=== PATIENT | male | born 1955 | race Caucasian/White ===

== ENCOUNTER 2024-06-15 13:08 | Outpatient (CLI) | payer MEDICARE, SELFPAY ==
--- NOTE | ~2024-06-15 | XR_ITS ---
[id number] Ordering provider: Opal Avendano DO History: . M79.671 - Pain in right foot . Comparison: None. FINDINGS: BONES: No acute fracture or dislocation. Calcaneus spur. JOINT SPACES: Narrowing of the proximal and distal interphalangeal joints. No tarsal coalition. SOFT TISSUES: Vascular calcifications. IMPRESSION: No acute osseous abnormality of the right foot. Reviewed, dictated and finalized at location A. SITE COORDINATOR
== END 2024-06-15 13:09 | disposition home or self-care (01) ==
LOC: MICIMG 13:11
PROVIDERS: PCP Family Medicine; Visit Provider Family Medicine
DX: M79.671 Pain in right foot (principal)
CPT/HCPCS: 73630

== ENCOUNTER 2024-10-25 07:00 | Outpatient (NON) | payer MEDICARE, SELFPAY ==
--- OUTSIDE RECORDS SUMMARY | 2024-10-26 07:57 | XMS_ITS | Clinical Summary ---
Author Organization [facility] Address [address] [place] [address] Care Team Providers Care Tie In Machine Operator Name Role Phone Darrin Agudelo MD Primary Care Provider [phone] Allergies Active Allergy Reactions Criticality Noted Date [...] this topic Insurance [employer] Care Teams Tie In Machine Operator Relationship Specialty Start Date End Date Darrin Agudelo MD [address] [place] [id number] PCP - General INTERNAL MEDICINE 02/05/19
== END 2024-10-25 07:01 | disposition home or self-care (01) ==
LOC: ANHLAB 10-26 07:51
PROVIDERS: PCP Family Medicine; Visit Provider Internal Medicine Gastroenterology
DX: D12.3 Benign neoplasm of transverse colon (principal); Z12.11 Encounter for screening for malignant neoplasm of colon
CPT/HCPCS: 88305

== ENCOUNTER 2024-10-25 09:01 | Day surgery (SDC) | payer MEDICARE, SELFPAY ==
[2024-06-21 08:53] VITALS: BMI 32.9
[2024-10-04 10:36] VITALS: BMI 33.5
--- NOTE | 2024-10-05 06:55 | PC.NURSE ---
Chart reviewed per anesthesia. Pt OK for ASC per Dr. Jose.
--- NOTE | 2024-10-25 07:05 | WPDANESEPPF ---
Anes - Initial Pre Proc Eval Procedure: Operation Date: 10/25/24 11:00 Proposed Procedures p Screening Colonoscopy - Enrique Hernandez MD Date/Time: 10/25/24 07:05 Surgeon: Enrique Hernandez MD Pre Op Diagnosis: Neoplasm Screening Patient Data Age: 69 Gender: M Height: 1.73 m Weight: 100 kg Allergies Allergy/AdvReac Type Severity Reaction Status Date / Time Penicillins Allergy Mild childhood Verified 10/25/24 09:40 allergy aspirin AdvReac Mild History of Verified 10/25/24 09:40 gastric bypass Home Medications ?Medication ?Instructions ?Recorded ?Confirmed ?Type calcium carbonate (Calcium 500) 500 mg PO BID 06/14/24 10/25/24 History citalopram 10 mg tablet 10 mg PO DAILY 06/14/24 10/25/24 History cyanocobalamin (vitamin B-12) 500 mcg PO DAILY 06/14/24 10/25/24 History 1,000 mcg tablet losartan 100 mg tablet 100 mg PO DAILY 06/14/24 10/25/24 History montelukast 10 mg tablet 10 mg PO DAILY 06/14/24 10/25/24 History wmvipkpf-op-msmul 300 mcg-K 60 1 tablet PO DAILY 06/14/24 10/25/24 History mcg-lycop 600 mcg-lutein 300 mcg tablet (Centrum Silver Ultra Men's) pravastatin 20 mg tablet 20 mg PO DAILY 06/14/24 10/25/24 History trazodone 50 mg tablet 50 mg PO QHS PRN insomnia #90 tabs 06/14/24 10/25/24 Rx semaglutide 1 mg/dose (4 mg/3 mL) 1 mg (0.75 mL) subcut WEEKLY #3 mL 10/14/24 10/25/24 Rx subcutaneous pen injector (Ozempic) Patient hx anesthesia problems: none Family hx anesthesia problems: none Results Review: All pre-operative results and documents have been reviewed as part of the pre-operative evaluation. [facility] Past Medical History Medical History (Updated 10/25/24 @ 07:06 by David Jose DO) Hypertension Iron deficiency anemia Hyperlipidemia associated with type 2 diabetes mellitus Diabetes mellitus BMI 32.0-32.9,adult Arthritis Surgical History Surgical History (Updated 10/25/24 @ 07:06 by David Jose DO) H/O gastric bypass Family History Family History (Updated 10/14/24 @ 13:54 by BRENDEN Beltran) Mother Cancer of multiple primary sites Father Esophageal cancer Hypertension Diabetes mellitus Sibling Diabetes mellitus Hypertension Heart problem Social History Social History (Updated 10/14/24 @ 13:55 by BRENDEN Beltran) Smoking status: Never smoker Second hand tobacco smoke exposure: No Alcohol intake: current Drinks per week: 5 Substance use: never Substance use type: does not use Do You Feel Safe in your Home?: Yes Lack of Transportation: No Lack of Food: Never True Current Housing: I Have Housing Concerned About Future Housing: No Difficulty Paying Gas/Electric Bills: No Difficulty Paying for Meds: No Currently Unemployed: No Education: Associate Degree Difficulty w/ Childcare or Family Care: No Living arrangements: with family 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 Informed Consent: The patient's anesthetic plan and its attendant risks and benefits were discussed with the patient/family/POA. Questions were solicited and answers provided to the satisfaction of the patient/family/POA.
[2024-10-25 09:52] VITALS: BMI 31.6
[2024-10-25 09:53] VITALS: BP 133/82; PULSE 63; RESP 16; TEMP 36.4; O2SAT 98
[2024-10-25 10:07] LABS: Glucose Point of Care 94 mg/dl (65-105)
[2024-10-25] MEDS: LACTATED RINGERS 1,000 ML 150 ML IV CONT (10:08)
--- OUTSIDE RECORDS SUMMARY | 2024-10-25 10:29 | XMS_ITS | Clinical Summary ---
Author Organization [facility] Address [address] [place] [address] Care Team Providers Care Surgery Consultant Name Role Phone Darrin Agudelo MD Primary Care Provider [phone] Allergies Active Allergy Reactions Criticality Noted Date Comments Nsaids Other (see comment) 02/05/2019 GASTRIC BYPASS Penicillins Unknown 02/05/2019 Medications azelastine 0.1 % nasal spray 1 spray by Nasal route 2 (two) times daily. Use in each nostril as directed Active calcium carbonate-vitam in D 500-200 MG-UNIT Tab tablet Take 1 tablet by mouth daily. Active vitamin B-12 (CYANOCOBALAMIN ) 500 MCG tablet Take 500 mcg by mouth daily. Active finasteride 5 MG tablet Take 5 mg by mouth daily. Active fluticasone furoate 27.5 MCG/SPRAY Suspension 1 spray by Each Nostril route. Active metFORMIN 1000 MG tablet Take 1,000 mg by mouth 2 (two) times daily with meals. Active pravastatin 20 MG tablet Take 20 mg by mouth nightly at bedtime. Active tamsulosin 0.4 MG Cap Take 0.4 mg by mouth daily. Active traMADol 50 MG tablet Take 50 mg by mouth every 6 (six) hours as needed for Pain. Active multivitamin tablet Take by mouth daily. Active Social History Tobacco Use Types Packs/Day Years Used Date Smoking Tobacco: Never Smokeless Tobacco: Never Alcohol Use Standard Drinks/Week Comments No 0 (1 standard drink = 0.6 oz pur e alcohol) AUDIT-C Answer Date Recorded Frequency of Alcohol Consumption Never 02/05/2019 Average Number of Drinks Not on file 019 Frequency of Binge Drinking Not on file 08/2018 Sex and Gender Information Value Date Recorded Sex Assigned at Not on file Legal Sex Male 12:21 PM CDT Gender Identity Not on file Sexual Orientation Not on file Last Filed Vital Signs Vital Sign Reading Time Taken Comments Blood Pressure 138/88 02/05/2019 2:04 PM CDT Pulse 70 02/05/2019 2:04 PM CDT Temperature 37.1 C (98.7 F) 02/05/2019 2:04 PM CDT Respiratory Rate 18 02/05/2019 2:04 PM CDT Oxygen Saturation 98% 02/05/2019 2:04 PM CDT Inhaled Oxygen Concentration - - Weight 95.3 kg (210 lb) 02/05/2019 12:41 PM CDT Height 170.2 cm (5' 7 ) 02/05/2019 12:41 PM CDT Body Mass Index 32.89 02/05/2019 12:41 PM CDT Plan of Treatment Health Maintenance Due Date Last Done Comments Colorectal Cancer Screening Colonoscopy (10 Years) 1956 Hepatitis C 1974 DTaP, Tdap and Td Vaccines ( 1 - Tdap) 1975 Pneumococcal Vaccine: 50+ Ye ars (1 of 1 - PCV) 2006 Zoster Vaccines (1 of 2) 2006 COVID-19 Vaccine ( - 2023-2 5 season) 2024 RSV Immunization or 60+ Years (1 - 1-dose 75+ series) 2031 Meningococcal B Vaccine Aged Out No l onger eligible based on patient's age to complete this topic Meningococcal Vaccine Aged Out No mary hans eligible based on patient's age to complete this topic RSV Immunizations Under 20 Months Aged Out No longer eligible based on patient's age to complete this topic Insurance [employer] Care Teams Surgery Consultant Relationship Specialty Start Date End Date Darrin Agudelo MD [address] [place] [id number] PCP - General INTERNAL MEDICINE 02/05/19
--- NOTE | 2024-10-25 10:45 | PM.IMHP ---
H&P: HPI History of Present Illness Date/Time: 10/25/24 10:45 Chief Complaint: Screening colonoscopy Narrative: this patient has a history of bladder cancer, status post radical cystectomy with urostomy. His last screening colonoscopy was 20 years ago. He is referred for screening colonoscopy today. Review of Systems Review of Systems: All systems reviewed & are unremarkable except as noted in HPI and below PMFSH Past Medical History Medical History (Updated 10/25/24 @ 10:46 by Enrique Hernandez MD) Hypertension Iron deficiency anemia Hyperlipidemia associated with type 2 diabetes mellitus Diabetes mellitus BMI 32.0-32.9,adult Arthritis Surgical History Surgical History (Updated 10/25/24 @ 07:06 by David Jose DO) H/O gastric bypass Family History Family History (Updated 10/14/24 @ 13:54 by BRENDEN Beltran) Mother Cancer of multiple primary sites Father Esophageal cancer Hypertension Diabetes mellitus Sibling Diabetes mellitus Hypertension Heart problem Social History Social History (Updated 10/14/24 @ 13:55 by BRENDEN Beltran) Smoking status: Never smoker Second hand tobacco smoke exposure: No Alcohol intake: current Drinks per week: 5 Substance use: never Substance use type: does not use Do You Feel Safe in your Home?: Yes Lack of Transportation: No Lack of Food: Never True Current Housing: I Have Housing Concerned About Future Housing: No Difficulty Paying Gas/Electric Bills: No Difficulty Paying for Meds: No Currently Unemployed: No Education: Associate Degree Difficulty w/ Childcare or Family Care: No Living arrangements: with family 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 Gender identity (if verbalized by the patient): Male Spiritual care concerns: No Meds Home Medications and Allergies Home Medications ?Medication ?Instructions ?Recorded ?Confirmed ?Type calcium carbonate (Calcium 500) 500 mg PO BID 06/14/24 10/25/24 History citalopram 10 mg tablet 10 mg PO DAILY 06/14/24 10/25/24 History cyanocobalamin (vitamin B-12) 500 mcg PO DAILY 06/14/24 10/25/24 History 1,000 mcg tablet losartan 100 mg tablet 100 mg PO DAILY 06/14/24 10/25/24 History montelukast 10 mg tablet 10 mg PO DAILY 06/14/24 10/25/24 History sbkmknsz-te-rqfuc 300 mcg-K 60 1 tablet PO DAILY 06/14/24 10/25/24 History mcg-lycop 600 mcg-lutein 300 mcg tablet (Centrum Silver Ultra Men's) pravastatin 20 mg tablet 20 mg PO DAILY 06/14/24 10/25/24 History trazodone 50 mg tablet 50 mg PO QHS PRN insomnia #90 tabs 06/14/24 10/25/24 Rx semaglutide 1 mg/dose (4 mg/3 mL) 1 mg (0.75 mL) subcut WEEKLY #3 mL 10/14/24 10/25/24 Rx subcutaneous pen injector (Ozempic) Allergies Allergy/AdvReac Type Severity Reaction Status Date / Time Penicillins Allergy Mild childhood Verified 10/25/24 09:40 allergy aspirin AdvReac Mild History of Verified 10/25/24 09:40 gastric bypass Vital Signs Vital Signs - 24 hr 10/25/24 09:53 Temperature 97.6 F Pulse Rate 63 Respiratory Rate 16 Blood Pressure 133/82 Pulse Oximetry 98 Oxygen Delivery Room Air Exam Const: General: cooperative and healthy appearing Resp: Effort & Inspection: normal respiratory effort and able to speak in complete sentences Auscultation: clear to auscultation bilaterally Cardio: Rate: regular rate Rhythm: regular rhythm GI: Inspection: normal to inspection GI Palp: No No hepatosplenomegaly present Auscultation: normal bowel sounds Rectal Exam: deferred Skin: General skin exam: normal color Psych: Appearance: grossly normal Mental Status: mental status grossly normal Assessment and Plan Assessment and plan (1) Encounter for screening colonoscopy: Code(s): Z12.11 - Encounter for screening for malignant neoplasm of colon Status: Acute Assessment and Plan: The patient is deemed a good candidate for the procedure. Consent signed. Will proceed.
[2024-10-25] MEDS: SIMETHICONE ORAL SUSPENSION 20 MG/0.3 ML 30 ML BOTTLE 0.6 ML IRRIGATION ×2 (11:03→11:21)
[2024-10-25 11:17] VITALS: BP 129/76; PULSE 55; RESP 16; O2SAT 98
[2024-10-25 11:27] VITALS: BP 121/68; PULSE 63; RESP 18; O2SAT 100
[2024-10-25 11:37] VITALS: BP 133/77; PULSE 58; RESP 20; O2SAT 100
--- NOTE | 2024-10-25 12:22 | WPDANESPN ---
Anes - Prog Note Post-Op Date/Time: 10/25/24 12:22 Cardiovascular status: normal Respiratory status: normal Airway patency: baseline Mental status: baseline Post-Op hydration status: normal Vital Signs: Last Vital Signs Temp 36.4 C 10/25/24 09:53 Pulse 58 L 10/25/24 11:37 Resp 20 10/25/24 11:37 BP 133/77 10/25/24 11:37 Pulse Ox 100 10/25/24 11:37 O2 Del Method Room Air 10/25/24 11:37 Pain Score (VAS): 0 I/O: Intake & Output 10/24/24 10/25/24 10/25/24 23:59 07:59 15:59 Intake Total 450 Balance 450 10/25/24 10:04 POC Capillary Glucose 94 Post-procedural complaints: none Patient Feedback: Patient satisfied with anesthetic care. Other Findings: Patient vital signs back to baseline. Patient denies nausea and vomiting. Patient's pain under control. Patient OK for discharge.
== END 2024-10-25 11:46 | disposition home or self-care (01) ==
PROVIDERS: PCP Family Medicine; Visit Provider Internal Medicine Gastroenterology
PROC: 0DJD8ZZ Inspection of Lower Intestinal Tract, Via Natural or Artificial Opening Endoscopic (ICD-10-PCS; CPT 45378; principal; 2024-10-25 11:00)
DX: Z12.11 Encounter for screening for malignant neoplasm of colon (principal); D12.3 Benign neoplasm of transverse colon; K57.30 Diverticulosis of large intestine without perforation or abscess without bleeding; K64.8 Other hemorrhoids
CPT/HCPCS: 45385

== ENCOUNTER 2025-02-06 14:42 | Emergency (ER) | payer MEDICARE, SELFPAY ==
[2025-02-06 14:50] VITALS: BP 121/75; PULSE 71; RESP 18; TEMP 36.4; O2SAT 98
--- NOTE | 2025-02-06 14:53 | ED_ITS ---
HPI - General Adult General Chief complaint: Shortness of Breath/Dyspnea Stated complaint: Low B/P SOB Time Seen by Provider: 02/06/25 14:54 Source: patient Mode of arrival: ambulatory Limitations: no limitations History of Present Illness HPI narrative: 69-year-old male patient presents to the [facility] with complaints of lightheadedness, dizziness, intermittent chest pain and shortness of breath and low blood pressure. Patient states he has been having symptoms for about 4 days now. Patient states that when he changes position he does feel lightheaded and dizziness at times. Denies any nausea vomiting or diarrhea. Denies any fevers body aches or chills or recent illness. Patient states he has been taking his blood pressure at home and states it has been low. Patient took his blood pressure twice today and the 1st time was 108/61 the 2nd time was 90/66. Patient did take his losartan today. Related Data Home Medications ?Medication ?Instructions ?Recorded ?Confirmed ?Last Taken ?Type calcium carbonate (Calcium 500) 500 mg PO BID 06/14/24 10/25/24 10/23/24 History citalopram 10 mg tablet 10 mg PO DAILY 06/14/24 10/25/24 10/24/24 History cyanocobalamin (vitamin B-12) 500 mcg PO DAILY 06/14/24 10/25/24 10/23/24 History 1,000 mcg tablet losartan 100 mg tablet 100 mg PO DAILY 06/14/24 10/25/24 10/24/24 History montelukast 10 mg tablet 10 mg PO DAILY 06/14/24 10/25/24 10/24/24 History tnwzfkxr-dm-jyiyk 300 mcg-K 60 1 tablet PO DAILY 06/14/24 10/25/24 10/23/24 History mcg-lycop 600 mcg-lutein 300 mcg tablet (Centrum Silver Ultra Men's) pravastatin 20 mg tablet 20 mg PO DAILY 06/14/24 10/25/24 10/24/24 History metformin 1,000 mg tablet mg 02/06/25 Unknown History Allergies Allergy/AdvReac Type Severity Reaction Status Date / Time Penicillins Allergy Mild childhood Verified 02/06/25 14:44 allergy aspirin AdvReac Mild History of Verified 02/06/25 14:44 gastric bypass Review of Systems Review of Systems: CONSTITUTIONAL: Denies fever, chills, or sweats. EYES: Denies visual changes, redness, or discharge. ENT: Denies rhinorrhea, congestion, sore throat, or otalgia. CARDIOVASCULAR: Positive intermittent chest pain and shortness of breath, jason es palpitations, or edema. RESPIRATORY: Denies cough or dyspnea. GASTROINTESTINAL: Denies abdominal pain, nausea, vomiting, or diarrhea. GENITOURINARY: Denies dysuria or hematuria. SKIN: Denies rash or itching. MUSCULOSKELETAL: Denies back pain, joint pain, or myalgia. NEUROLOGIC: Denies headache, numbness, or weakness. Positive lightheadedness and dizziness with position change PSYCHIATRIC: Denies anxiety or depression. [facility] Past Medical History Medical History Hypertension Iron deficiency anemia Hyperlipidemia associated with type 2 diabetes mellitus Diabetes mellitus BMI 32.0-32.9,adult Arthritis Surgical History Surgical History H/O gastric bypass Family History Family History Mother Cancer of multiple primary sites Father Esophageal cancer Hypertension Diabetes mellitus Sibling Diabetes mellitus Hypertension Heart problem Social History Social History Smoking status: Never smoker Second hand tobacco smoke exposure: No Alcohol intake: current Drinks per week: 5 Substance use: never Substance use type: does not use Do You Feel Safe in your Home?: Yes Lack of Transportation: No Lack of Food: Never True Current Housing: I Have Housing Concerned About Future Housing: No Difficulty Paying Gas/Electric Bills: No Difficulty Paying for Meds: No Currently Unemployed: No Education: Associate Degree Difficulty w/ Childcare or Family Care: No Living arrangements: with family 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 There is no relevant family history pertinent to the presenting complaint. Exam Narrative: GENERAL: Well-appearing, well-nourished, and in no acute distress. HEAD: Normocephalic, atraumatic. EYES: PERRLA and EOMI. ENT: Nares clear, no rhinorrhea or epistaxis. Mucous membranes moist. Posterior pharynx with no erythema, tonsillar enlargement, exudates or lesions present. Bilateral TMs are clear no erythema or foreign bodies the canal. NECK: Supple. No lymphadenopathy CHEST: Clear to auscultation. No respiratory distress. Patient able talk in clear complete sentences. No tripoding noted. HEART: Regular rate and rhythm. No murmur heard. Normal peripheral pulses. ABDOMEN: Soft, nontender, nondistended, normal active bowel sounds. EXTREMITIES: Normal range of motion. No edema. SKIN: Warm, dry, no rash. NEURO: No focal deficits. Alert and oriented x3. Course Course Level of Care: Express Care Visit Vital Signs Vital signs: Vital signs reviewed. Transfer Transfered to: [place] Transportation: Other (Private vehicle with ) Transfer rationale: Chest pain, shortness of breath intermittently with lightheadedness and dizziness on position changes Accepting physician: Julianna Kelly NP Medical Decision Making [facility] Narrative Medical decision making narrative: Discussed with patient given that he is had the symptoms now for 3 or 4 days and it continues his orthostatic blood pressures were negative however he was positive for symptoms on position changes. We do not have a prior EKG but however there is some concerns about his EKG and this could be causing his symptoms therefore we are going to send him to [facility] for further evaluation and treatment. Report was given to Julianna BELCHER in the ER and patient is agreement with this plan of care. Patient has opted to go to the ER via [employer] [facility] car with his that will drive him. Patient is currently stable at this time and I think that is appropriate. Differential Diagnosis Differential Diagnosis: Differential diagnosis: STEMI/ACS, AAA, PE, spontaneous pneumothorax, cardiac tamponade, esophageal rupture, pneumonia, GERD, muscle-skeletal pain or trauma, endocarditis, cocaine-related ischemia, pericarditis, URI, bronchitis. Shortness breath differential ECG Data EKG #1: ECG completion date: 02/06/25 ECG completion time: 15:05 Prior ECG tracings: not available for review Interpretation: Sinus rhythm with first-degree AV block. Right bundle branch block. 120+ MS QRS duration, upright B1, 40+ MS S in lead 1/aVL/before/V5/V6 Left anterior vascular block, QRS axis less than or equal to-45, QR in lead 1, are as in lead 2. Abnormal ECG. Unconfirmed report. Vent rate: 69 HI interval: 285 QRS duration: 136 QT/QTC: 429/448 P-R-T axis: -5, -52,-6 Average RR: 863 QT CB: 461 QTCF: 450 Discharge Plan Discharge Clinical Impression: Episodic lightheadedness, Dizziness Patient Disposition: Acute Care Hospital Condition: Stable Instructions: Antibiotic Form Patient Language: Nigerian Prescriptions: No Action metformin 1,000 mg tablet citalopram 10 mg tablet 10 mg PO DAILY losartan 100 mg tablet 100 mg PO DAILY montelukast 10 mg tablet 10 mg PO DAILY pravastatin 20 mg tablet 20 mg PO DAILY Centrum Silver Ultra Men's [id number] mcg tablet 1 tablet PO DAILY cyanocobalamin (vitamin B-12) 1,000 mcg tablet 500 mcg PO DAILY calcium carbonate [Calcium 500] 500 mg calcium (1,250 mg) tablet,chewable 500 mg PO BID Patient Comments: . trazodone 50 mg tablet 50 mg PO QHS PRN (Reason: insomnia) Qty: 90 1RF Ozempic 1 mg/dose (4 mg/3 mL) pen injector See Rx Instructions .ROUTE .COMPLEX Qty: 3 0RF Dose Instruction: ADMINISTER 1 MG UNDER THE SKIN WEEKLY Rx Instructions: ADMINISTER 1 MG UNDER THE SKIN WEEKLY Follow-up/Referrals: Opal Avendano DO [Primary Care Provider] - Time of Disposition: 15:23
--- NOTE | 2025-02-06 14:58 | ECG_ITS ---
Test Date: 2025-02-06 15:05:21 Measurements Intervals [place] Rate: 69 P: -5 DE: 285 QRS: -52 QRSD: 136 T: -6 QT: 429 QTc: 461 Interpretive Statements SINUS RHYTHM WITH FIRST DEGREE AV BLOCK RIGHT BUNDLE BRANCH BLOCK LEFT ANTERIOR FASCICULAR BLOCK BASELINE ARTIFACT- I, II, III, AVR, AVL, AVF, V4-V6 ABNORMAL ECG No previous ECG available for comparison Electronically Signed On 02-06-2025 16:12:09 CDT by Leo Canada D.O.
[2025-02-06 15:00] VITALS: BP 131/70; PULSE 72
[2025-02-06 15:05] VITALS: BP 134/74; PULSE 72
[2025-02-06 15:08] VITALS: BP 130/88; PULSE 72
== END 2025-02-06 15:15 | disposition short-term general hospital (02) ==
PROVIDERS: Emergency Provider Nurse Practitioner Family; PCP Family Medicine
DX: R42 Dizziness and giddiness (principal); I45.10 Unspecified right bundle-branch block; I45.2 Bifascicular block; I10 Essential (primary) hypertension; E11.9 Type 2 diabetes mellitus without complications; Z79.84 Long term (current) use of oral hypoglycemic drugs; Z79.85 Long-term (current) use of injectable non-insulin antidiabetic drugs; E78.5 Hyperlipidemia, unspecified; M19.90 Unspecified osteoarthritis, unspecified site; D50.9 Iron deficiency anemia, unspecified; Z98.84 Bariatric surgery status; I44.0 Atrioventricular block, first degree
CPT/HCPCS: 93005; 99213; G0463

== ENCOUNTER 2025-02-06 15:31 | Emergency (ER) | payer MEDICARE, SELFPAY ==
[2025-02-06] VITALS (30 sets, daily range): BP systolic 105–136; BP diastolic 71–97; PULSE 55–82; RESP 10–25; O2SAT 95–100
--- NOTE | ~2025-02-06 | XR_ITS ---
EXAMINATION: XR chest 2V Exam Date/Time: 02/06/2025 16:03 CDT HISTORY: SOB Comparison: None. RESULT: Lines, tubes, and devices: Cholecystectomy clips. Suture material over the anterior upper abdomen in the lateral view. Lungs and pleura: Clear. Cardiomediastinal silhouette: Unremarkable. Other: No acute osseous or upper abdominal finding. IMPRESSION: No acute cardiopulmonary process. Reviewed, dictated and finalized at location K.
--- OUTSIDE RECORDS SUMMARY | 2025-02-06 15:32 | XMS_ITS | Clinical Summary ---
Author Organization [facility] Address [address] [place] [address] Care Team Providers Care Block Hacker Name Role Phone Darrin Agudelo MD Primary Care Provider [phone] Allergies Active Allergy Reactions Criticality Noted Date [...] 12:41 PM CDT Height 170.2 cm (5' 7) 02/05/2019 12:41 PM CDT Body Mass Index [...] this topic Insurance [employer] Care Teams Block Hacker Relationship Specialty Start Date End Date Darrin Agudelo MD [address] [place] [id number] PCP - General INTERNAL MEDICINE 02/05/19
--- NOTE | 2025-02-06 15:39 | ECG_ITS ---
Test Date: 2025-02-06 15:44:46 Measurements Intervals [place] Rate: 64 P: 4 CO: 316 QRS: -44 QRSD: 142 T: -2 QT: 438 QTc: 455 Interpretive Statements SINUS RHYTHM WITH FIRST DEGREE AV BLOCK LEFT AXIS DEVIATION RIGHT BUNDLE BRANCH BLOCK BASELINE ARTIFACT- I, II, AVR, AVL ABNORMAL ECG Compared to ECG 02/06/2025 15:05:21 LEFT ANTERIOR FASCICULAR BLOCK NO LONGER PRESENT Electronically Signed On 02-06-2025 16:15:36 CDT by Leo Canada D.O.
[2025-02-06 15:59] LABS: Hematocrit 41.3 % (42.0-52.0); Hemoglobin 13.5 g/dL (14.0-18.0); Immature Granulocyte Percent A 0.2 % (0-0.5); Lymphocytes Absolute Auto 1.50 K/mm3 (0.9-3.2); Mean Corpuscular HGB Conc 32.7 g/dl (32-36); Mean Corpuscular Hemoglobin 30.8 pg (26-34); Mean Corpuscular Volume 94.3 fl (80-100); Nucleated Red Blood Cells Absolute Auto 0.000 K/mm3 (0.0-0.012); Nucleated Red Blood Cells Perc 0.0 % (0.0-0.2); Platelet Count Result 209 k/mm3 (150-375); Red Blood Count 4.38 M/mm3 (4.6-6.20); White Blood Count 5.1 K/mm3 (4.5-10.0)
[2025-02-06 16:16] LABS: Alanine Aminotransferase 34 U/L (6-50); Albumin Level 4.0 g/dL (3.5-5.1); Alkaline Phosphatase 83 U/L (38-126); Anion Gap 6 mmol/L (4-12); Aspartate Amino Transferase 32 U/L (17-59); Bilirubin,Total 0.6 mg/dL (0.2-1.3); Blood Urea Nitrogen 24 mg/dL (9-20); Calcium 9.2 mg/dL (8.4-10.2); Carbon Dioxide 19 mmol/L (22-30); Chloride 108 mmol/L (98-107); Estimated CRCL calculation 80 ml/min; Estimated Glomerular Filt Rate > 60; Glucose 122 mg/dL (65-110); Potassium 4.3 mmol/L (3.4-5.0); Sodium 133 mmol/L (137-145); Total Protein 6.7 g/dL (6.3-8.2)
--- OUTSIDE RECORDS SUMMARY | 2025-02-06 16:17 | XMS_ITS | Clinical Summary ---
Author Organization [facility] Address [address] [place] [address] Care Team Providers Care Care Manager Name Role Phone Darrin Agudelo MD Primary Care Provider [phone] Allergies Active Allergy Reactions Criticality Noted Date [...] this topic Insurance [employer] Care Teams Care Manager Relationship Specialty Start Date End Date Darrin Agudelo MD [address] [place] [id number] PCP - General INTERNAL MEDICINE 02/05/19
[2025-02-06 16:27] LABS: Iron 94 ug/dL (49-181)
[2025-02-06 16:36] LABS: Percent Iron Saturation 27 % (20-50)
--- NOTE | 2025-02-06 17:15 | ED_ITS ---
HPI - SOB/Dyspnea General Chief Complaint: Shortness of Breath/Dyspnea Stated Complaint: light headed Time Seen by Provider: 02/06/25 16:07 History of Present Illness HPI Narrative: 69-year-old male presenting to the emergency department from urgent care for concerns of some exertional dyspnea for several days. States that he has had this before when he had low iron from his gastric bypass requiring any transfusions. No abdominal pain, fever, chills, chest pain or chest tightness. No chest pain with exertion. States that whenever he exerts himself he feels lobe more short of breath normal. No history of DVT or PE. No leg swelling or immobility recently. History of bladder cancer with radical cystectomy, he has a diverting urostomy as well as a gastric bypass from 9 years ago. No new or recent abdominal surgeries. Was otherwise in his normal state of health. No cardiac history to his knowledge. Related Data Home Medications ?Medication ?Instructions ?Recorded ?Confirmed ?Last Taken ?Type calcium carbonate (Calcium 500) 500 mg PO BID 06/14/24 10/25/24 10/23/24 History citalopram 10 mg tablet 10 mg PO DAILY 06/14/24 10/25/24 10/24/24 History cyanocobalamin (vitamin B-12) 500 mcg PO DAILY 06/14/24 10/25/24 10/23/24 History 1,000 mcg tablet losartan 100 mg tablet 100 mg PO DAILY 06/14/24 10/25/24 10/24/24 History montelukast 10 mg tablet 10 mg PO DAILY 06/14/24 10/25/24 10/24/24 History [id number] 300 mcg-K 60 1 tablet PO DAILY 06/14/24 10/25/24 10/23/24 History mcg-lycop 600 mcg-lutein 300 mcg tablet (Centrum Silver Ultra Men's) pravastatin 20 mg tablet 20 mg PO DAILY 06/14/24 10/25/24 10/24/24 History metformin 1,000 mg tablet mg 02/06/25 Unknown History Allergies Allergy/AdvReac Type Severity Reaction Status Date / Time Penicillins Allergy Mild childhood Verified 02/06/25 15:33 allergy aspirin AdvReac Mild History of Verified 02/06/25 15:33 gastric bypass Review of Systems 2 Review of Systems: As reviewed above in HPI PMFSH Past Medical History Medical History Hypertension Iron deficiency anemia Hyperlipidemia associated with type 2 diabetes mellitus Diabetes mellitus BMI 32.0-32.9,adult Arthritis Surgical History Surgical History H/O gastric bypass Family History Family History Mother Cancer of multiple primary sites Father Esophageal cancer Hypertension Diabetes mellitus Sibling Diabetes mellitus Hypertension Heart problem Social History Social History Smoking status: Never smoker Second hand tobacco smoke exposure: No Alcohol intake: current Drinks per week: 5 Substance use: never Substance use type: does not use Do You Feel Safe in your Home?: Yes Lack of Transportation: No Lack of Food: Never True Current Housing: I Have Housing Concerned About Future Housing: No Difficulty Paying Gas/Electric Bills: No Difficulty Paying for Meds: No Currently Unemployed: No Education: Associate Degree Difficulty w/ Childcare or Family Care: No Living arrangements: with family 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 Gender identity (if verbalized by the patient): Male Spiritual care concerns: No Exam 2 Narrative: GENERAL: [Well-appearing, well-nourished, and in no acute distress.] HEAD: [Normocephalic, atraumatic.] EYES: [PERRLA and EOMI.] ENT: Nares clear, no rhinorrhea or epistaxis. Mucous membranes moist. NECK: Supple. CHEST: [Clear to auscultation. No respiratory distress.] HEART: [Regular rate and rhythm]. No murmur heard. [Normal peripheral pulses.] ABDOMEN: [Soft, nondistended], [nontender], [No rigidity or guarding] urostomy on the right side with clear yellow urine EXTREMITIES: Normal range of motion. [No edema.] SKIN: Warm, dry, no rash. NEURO: [No focal deficits]. Alert and oriented [x3.] PSYCH: [Normal mood and affect.] MDM - SOB/Dyspnea MDM Narrative Medical decision making narrative: 69-year-old male presenting to the emergency department from urgent care for concerns of some exertional dyspnea for several days. States that he has had this before when he had low iron from his gastric bypass requiring any transfusions. No abdominal pain, fever, chills, chest pain or chest tightness. No chest pain with exertion. States that whenever he exerts himself he feels lobe more short of breath normal. No history of DVT or PE. No leg swelling or immobility recently. History of bladder cancer with radical cystectomy, he has a diverting urostomy as well as a gastric bypass from 9 years ago. No new or recent abdominal surgeries. Was otherwise in his normal state of health. No cardiac history to his knowledge. Patient is not any acute distress, ambulating without difficulty, unremarkable physical examination without any focal concerning findings. No signs of DVT on examination. Given patient's historical features including gastric bypass deficiency anemia as well as his prostate cancer history status post major surgery differential remains large and his D IP with exertion could be multifactorial. Differential includes electrolyte abnormalities, iron deficiency, anemia, infectious blood such as pneumonia, bronchitis, thromboembolic disease such as PE, ACS or heart failure less likely given his clinical exam in historical features. Workup ordered including CBC, CMP, D- dimer, BNP, troponin, two-view chest x-ray and EKG. He was placed on monitoring engineer and re-evaluated. EKG obtained that shows a right bundle branch block but no ST segment elevations, depressions or inversions or any acute concerning ischemic changes. Patient's laboratory studies show some dehydration with a mildly elevated BUN and low sodium and chloride but not severe range. No creatinine elevations. Negative troponin, negative D-dimer, negative chest x-ray. No leukocytosis or significant anemia. Normal iron levels. Patient was given 2 L of hydration and feeling better on re-evaluation. Safe for discharge home at this time with regular PCP follow-up. Medical Records Attestation: I reviewed the patient's medical records. Lab Data Attestation: I reviewed the patient's lab results. 02/06/25 15:50 02/06/25 15:51 Labs: Lab Results 02/06/25 02/06/25 Range/Units 15:50 15:51 WBC 5.1 (4.5-10.0) K/mm3 RBC 4.38 L (4.6-6.20) M/mm3 Hgb 13.5 L (14.0-18.0) g/dL Hct 41.3 L (42.0-52.0) % MCV 94.3 (80-100) fl MCH 30.8 (26-34) pg MCHC 32.7 (32-36) g/dl RDW 13.2 (11.5-14.5) % Plt Count 209 (150-375) k/mm3 MPV 8.5 (7.4-10.4) fl Immature Gran % (Auto) 0.2 (0-0.5) % Neut % (Auto) 53.1 (45.5-73.1) % Lymph % (Auto) 29.3 (18.3-44.2) % [place] % (Auto) 11.3 H (2.6-8.5) % Eos % (Auto) 5.3 H (0-4.4) % Baso % (Auto) 0.8 (0.2-1.2) % Lymph # (Auto) 1.50 (0.9-3.2) K/mm3 [place] # (Auto) 0.6 (0.1-0.6) K/mm3 Eos # (Auto) 0.3 (0-0.3) K/mm3 Baso # (Auto) 0.0 (0.0-0.1) K/mm3 Abs Immat Gran (auto) 0.01 (0.00-0.031) K/mm3 Absolute Neuts (auto) 2.7 (1.3-6.7) K/mm3 Absolute Nucleated RBC 0.000 (0.0-0.012) K/mm3 Nucleated RBC % 0.0 (0.0-0.2) % D-Dimer 0.28 (<0.48) ug/mL Sodium 133 L (137-145) mmol/L Potassium 4.3 (3.4-5.0) mmol/L Chloride 108 H (98-107) mmol/L Carbon Dioxide 19 L (22-30) mmol/L Anion Gap 6 (4-12) mmol/L BUN 24 H (9-20) mg/dL Creatinine 0.79 (0.7-1.3) mg/dL Estim Creat Clear Calc 80 ml/min Estimated GFR > 60 (59 - ) Glucose 122 H (65-110) mg/dL Calcium 9.2 (8.4-10.2) mg/dL Iron 94 (49-181) ug/dL TIBC 342 (265-497) ug/dL % Saturation 27 (20-50) % Total Bilirubin 0.6 (0.2-1.3) mg/dL AST 32 (17-59) U/L ALT 34 (6-50) U/L Alkaline Phosphatase 83 (38-126) U/L Troponin I < 0.012 (0.000-0.034) ng/mL NT-Pro-B Natriuret Pep 504 H (19.9-100) pg/mL Total Protein 6.7 (6.3-8.2) g/dL Albumin 4.0 (3.5-5.1) g/dL Imaging Data Attestation: I personally reviewed and interpreted this imaging study as follows: My impression: Impressions Chest X-Ray 02/06/25 16:29 IMPRESSION: No acute cardiopulmonary process. Discharge Plan Discharge Clinical Impression: Acute dehydration, CASTILLO (dyspnea on exertion) Patient Disposition: Home Condition: Stable Instructions: Antibiotic Form Additional Instructions: Your laboratory studies are very reassuring here. No signs of any ongoing heart damage. No signs of heart failure or electrolyte abnormalities other than some minor dehydration with low sodium and chloride. Normal iron studies, no signs of blood clots. No pneumonia. Follow-up with regular doctor and return with any emergent concerns. Patient Language: [place] Prescriptions: No Action metformin 1,000 mg tablet citalopram 10 mg tablet 10 mg PO DAILY losartan 100 mg tablet 100 mg PO DAILY montelukast 10 mg tablet 10 mg PO DAILY pravastatin 20 mg tablet 20 mg PO DAILY Centrum Silver Ultra Men's [id number] mcg tablet 1 tablet PO DAILY cyanocobalamin (vitamin B-12) 1,000 mcg tablet 500 mcg PO DAILY calcium carbonate [Calcium 500] 500 mg calcium (1,250 mg) tablet,chewable 500 mg PO BID Patient Comments: . trazodone 50 mg tablet 50 mg PO QHS PRN (Reason: insomnia) Qty: 90 1RF Ozempic 1 mg/dose (4 mg/3 mL) pen injector See Rx Instructions .ROUTE .COMPLEX Qty: 3 0RF Dose Instruction: ADMINISTER 1 MG UNDER THE SKIN WEEKLY Rx Instructions: ADMINISTER 1 MG UNDER THE SKIN WEEKLY Follow-up/Referrals: Opal Avendano, DO [Primary Care Provider] - Time of Disposition: 19:09
[2025-02-06 18:02] LABS: NT Pro B Type Natriuretic Pept 504 pg/mL (19.9-100); Troponin I < 0.012 ng/mL (0.000-0.034)
[2025-02-06] MEDS: LACTATED RINGERS 1,000 ML 999 ML IV CONT ×2 (18:43)
== END 2025-02-06 19:31 | disposition home or self-care (01) ==
PROVIDERS: Emergency Provider Student in an Organized Health Care Education/Training Program; PCP Family Medicine
DX: R06.00 Dyspnea, unspecified (principal); E86.0 Dehydration; I10 Essential (primary) hypertension; E11.69 Type 2 diabetes mellitus with other specified complication; E78.5 Hyperlipidemia, unspecified; D50.9 Iron deficiency anemia, unspecified; M19.90 Unspecified osteoarthritis, unspecified site; Z93.6 Other artificial openings of urinary tract status; Z98.84 Bariatric surgery status; Z85.51 Personal history of malignant neoplasm of bladder; Z90.6 Acquired absence of other parts of urinary tract; Z79.84 Long term (current) use of oral hypoglycemic drugs; Z79.85 Long-term (current) use of injectable non-insulin antidiabetic drugs; Z79.899 Other long term (current) drug therapy
CPT/HCPCS: 36415; 71046; 80053; 83540; 83550; 83880; 84484; 85025; 85380; 93005; 96360; 99284; J7120

== ENCOUNTER 2025-03-21 12:25 | Outpatient (CLI) | payer MEDICARE, SELFPAY ==
--- NOTE | 2025-03-21 12:30 | ECHO_ITS ---
Patient Info Name: Vicente Clark Age: 69 years : 1955 Gender: Male Ht: 67 in Wt: 199 lbs BSA: 2.09 m2 HR: 76 bpm BP: 142 / 91 mmHg Heart Rhythm: Sinus Rhythm Technical Quality: Fair Exam Date: 03/21/2025 12:42 PM Patient Status: O Admit Date: 03/21/2025 Exam Type: CA echo doppler color flow Complete two-dimensional, color flow and Doppler transthoracic echocardiogram is performed. Digital Recruiter: Lissy Amin Attending Provider: Opal Avendano Summary 1. Complete two-dimensional, color flow and Doppler transthoracic echocardiogram is performed. 2. Left ventricular chamber dimension is normal. 3. Left ventricular systolic function is normal, estimated at 60-65. 4. There is moderate concentric increased left ventricular wall thickness. 5. The left ventricular diastolic function is grade I diastolic dysfunction. 6. E/e' 22 is elevated. 7. Left atrial chamber dimension is moderately enlarged. 8. There is mild aortic valve sclerosis. 9. The mitral valve has moderately calcified leaflets and a severely calcified annulus. 10. There is trace mitral valve regurgitation. 11. There is trace tricuspid valve regurgitation. 12. No pulmonary hypertension, estimated pulmonary arterial systolic pressure is 23 mmHg. Left Ventricle E/e' 22 is elevated. Left ventricular chamber dimension is normal. Left ventricular systolic function is normal, estimated at 60-65. There is moderate concentric increased left ventricular wall thickness. The left ventricular diastolic function is grade I diastolic dysfunction. Right Ventricle Right ventricular chamber dimension is normal. Right ventricular systolic function is normal and with normal TAPSE 2.1 cm. Left Atria Left atrial chamber dimension is moderately enlarged. Right Atria Right atrial chamber dimension is normal. Aortic Valve The aortic valve is trileaflet. There is mild aortic valve sclerosis. There is no aortic valve stenosis. There is no aortic valve regurgitation. Pulmonic Valve There is no pulmonic regurgitation. Mitral Valve The mitral valve has moderately calcified leaflets and a severely calcified annulus. There is no mitral valve stenosis. There is trace mitral valve regurgitation. Tricuspid Valve There is trace tricuspid valve regurgitation. No pulmonary hypertension, estimated pulmonary arterial systolic pressure is 23 mmHg. Pericardium/Pleural There is no pericardial effusion. Inferior Vena Cava Normal inferior vena cava with >50% collapse upon inspiration consistent with normal right atrial pressure, 5 mmHg. Aorta The aortic root size at the sinus of Valsalva is normal. Left Ventricular Outflow Tract Name Value Normal LVOT 2D LVOT Diameter 2.0 cm LVOT Doppler LVOT Peak Velocity 141 cm/s LVOT Peak Gradient 8 mmHg LVOT Mean Gradient 3 mmHg LVOT VTI 23 cm LVOT VTI/AV VTI Ratio 0.6 LVOT Stroke Volume 72 ml LVOT CO 4.9 l/min LVOT CI 2.3 l/min/m2 Pulmonic Valve Name Value Normal RVOT Doppler RVOT Peak Velocity 68 cm/s RVOT Peak Gradient 2 mmHg PV Doppler PV Peak Velocity 81 cm/s PV Peak Gradient 3 mmHg Mitral Valve Name Value Normal MV Diastolic Function MV E Peak Velocity 89 cm/s MV A Peak Velocity 127 cm/s MV E/A 0.7 MV Decel Time (PW) 256 ms MV Annular TDI MV E/e' (Septal) 20.3 MV E/e' (Lateral) 25.1 MV E/e' (Average) 22.7 Tricuspid Valve Name Value Normal TV Regurgitation Doppler TR Peak Velocity 214 cm/s TR Peak Gradient 18 mmHg Estimated PAP/RSVP RA Pressure 5 mmHg <=5 PA Systolic Pressure 23 mmHg <36 RV Systolic Pressure 23 mmHg <36 TV Annular TDI TV Lateral Ines s' Velocity 15.8 cm/s >=9.5 Aorta Name Value Normal Ascending Aorta Ao Root Diameter (MM) 3.4 cm Ao Root Diam Index (MM) 1.6 cm/m2 Aortic Valve Name Value Normal AV Doppler AV Peak Velocity 219 cm/s AV Peak Gradient 19 mmHg AV Mean Gradient 9 mmHg AV VTI 37 cm AV Area (Cont Eq VTI) 2.0 cm2 >=3.0 AV Area (Cont Eq Oziel) 2.0 cm2 AV DI (Oziel) 0.64 AV Regurgitation 2D LVOT Area 3.1 cm2 Ventricles Name Value Normal LV Dimensions 2D/MM IVS Diastolic Thickness (2D) 1.4 cm 0.6-1.0 LVID Diastole (2D) 5.0 cm 4.2-5.8 LVIW Diastolic Thickness (2D) 1.4 cm 0.6-1.0 LVID Systole (2D) 3.0 cm 2.5-4.0 LVOT Diameter 2.0 cm LV Mass (2D Cubed) 289.97 g 88.00-224.00 LV Mass Index (2D Cubed) 138 g/m2 49-115 Relative Wall Thickness (2D) 0.55 <=0.42 LV Fractional Shortening/Ejection Fraction 2D/MM LV Fractional Shortening (2D) 39 % 25-43 LV EF (2D Teichholz) 70 % LV Diastolic Volume (4C MOD) 62 ml LV EF (4C MOD) 60 % LV Diastolic Volume (2C MOD) 74 ml LV EF (2C MOD) 67 % LV Diastolic Volume (BP MOD) 73 ml 62-150 LV Diastolic Volume Index (BP MOD) 35 ml/m2 34-74 LV Systolic Volume (BP MOD) 26 ml 21-61 LV Systolic Volume Index (BP MOD) 12 ml/m2 11-31 LV EF (BP MOD) 64 % 52-72 LV Diastolic Length (4C) 6.4 cm LV Systolic Length (4C) 5.7 cm LV Stroke Volume (4C MOD) 37 ml Atria Name Value Normal LA Dimensions LA Dimension (MM) 4.5 cm 3.0-4.0 LA Volume (4C A-L) 88 ml LA Volume (BP A-L) 92 ml RA Dimensions RA Area (4C) 16.4 cm2 <=18.0 Report Signatures
--- OUTSIDE RECORDS SUMMARY | 2025-03-21 14:26 | XMS_ITS | Clinical Summary ---
Author Organization [facility] Address [address] [place] [address] Care Team Providers Care Production Machine Computer Operator Name Role Phone Darrin Agudelo MD Primary Care Provider [phone] Allergies Active Allergy Reactions Criticality Noted Date [...] COVID-19 Vaccine ( - 2023-2 5 season) 2025 RSV Immunization or 60+ Years (1 - [...] this topic Insurance [employer] Care Teams Production Machine Computer Operator Relationship Specialty Start Date End Date Darrin Agudelo MD PROFESSION[address] [place] [id number] PCP - General INTERNAL MEDICINE 02/05/19
== END 2025-03-21 12:26 | disposition home or self-care (01) ==
LOC: ANHCARD 12:28
PROVIDERS: PCP Family Medicine; Visit Provider Family Medicine
DX: R01.1 Cardiac murmur, unspecified (principal); I35.1 Nonrheumatic aortic (valve) insufficiency
CPT/HCPCS: 93306

== ENCOUNTER 2025-05-03 11:54 | Emergency (ER) | payer MEDICARE, SELFPAY ==
[2025-05-03 12:01] VITALS: BP 149/73; PULSE 65; RESP 20; TEMP 36.4; O2SAT 97
--- NOTE | 2025-05-03 12:10 | ED.URI ---
HPI - URI/Sore Throat General Chief Complaint: Upper Respiratory Infection Stated Complaint: Cough/Congestion Time Seen by Provider: 05/03/25 12:10 Source: patient, RN notes reviewed and old records reviewed Mode of arrival: ambulatory Limitations: no limitations History of Present Illness HPI Narrative: 69-year-old male presents to the [facility] with cough, nasal congestion both productive for 12 days. States that on April 20 started with the symptoms. Has taken multiple COVID tests at which he has report is negative Denies any chest pain, edema, shortness of breath. Patient reports that he is just tired of coughing. Has been taking DayQuil and NyQuil Related Data Home Medications ?Medication ?Instructions ?Recorded ?Confirmed ?Last Taken ?Type calcium carbonate (Calcium 500) 500 mg PO BID 06/14/24 02/08/25 10/23/24 History citalopram 10 mg tablet 10 mg PO DAILY 06/14/24 02/08/25 10/24/24 History cyanocobalamin (vitamin B-12) 500 mcg PO DAILY 06/14/24 02/08/25 10/23/24 History 1,000 mcg tablet montelukast 10 mg tablet 10 mg PO DAILY 06/14/24 02/08/25 10/24/24 History [id number] 300 mcg-K 60 1 tablet PO DAILY 06/14/24 02/08/25 10/23/24 History mcg-lycop 600 mcg-lutein 300 mcg tablet (Centrum Silver Ultra Men's) pravastatin 20 mg tablet 20 mg PO DAILY 06/14/24 02/08/25 10/24/24 History Allergies Allergy/AdvReac Type Severity Reaction Status Date / Time Penicillins Allergy Mild childhood Verified 05/03/25 12:08 allergy aspirin AdvReac Mild History of Verified 05/03/25 12:08 gastric bypass Review of Systems Review of Systems: All systems reviewed & are unremarkable except as noted in HPI and below Constitutional: Constitutional: Reports no additional constitutional complaints ENT: Reports system reviewed and no additional complaints, except as documented Cardiovascular: Cardiovascular: Reports no additional cardiovascular complaints, Denies chest pain and Denies dyspnea Respiratory: Respiratory: Reports as per HPI, Reports no additional respiratory complaints, Reports chest congestion, Reports cough and Denies dyspnea Musculoskeletal: Musculoskeletal: Reports no additional musculoskeletal complaints Integumentary/Breasts: Skin/Breast: Reports system reviewed and no additional complaints, except as docu [facility] Past Medical History Medical History Hypertension Iron deficiency anemia Hyperlipidemia associated with type 2 diabetes mellitus Diabetes mellitus BMI 32.0-32.9,adult Arthritis Surgical History Surgical History H/O gastric bypass Family History Family History Mother Cancer of multiple primary sites Father Esophageal cancer Hypertension Diabetes mellitus Sibling Diabetes mellitus Hypertension Heart problem Social History Social History Smoking status: Never smoker Second hand tobacco smoke exposure: No Alcohol intake: current Drinks per week: 5 Substance use: never Substance use type: does not use Do You Feel Safe in your Home?: Yes Lack of Transportation: No Lack of Food: Never True Current Housing: I Have Housing Concerned About Future Housing: No Difficulty Paying Gas/Electric Bills: No Difficulty Paying for Meds: No Currently Unemployed: No Education: Associate Degree Difficulty w/ Childcare or Family Care: No Living arrangements: with family 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 Gender identity (if verbalized by the patient): Male Spiritual care concerns: No Comments At the time of my signature, I reviewed and agree with the nursing past medical, surgical, social, and family history. There is no relevant family history pertinent to the patient complaint. Exam Const: General: cooperative, healthy appearing, comfortable, no acute distress, well developed, alert and well nourished Nutritional Appearance: well nourished Orientation/consciousness: patient oriented x3 Limitations: no limitations HENMT: Head: normal to inspection Ears: hearing grossly normal bilaterally, external ears normal, TM's normal bilaterally, EAC's normal, mastoids normal and no periauricular adenopathy Throat: posterior oropharynx normal, uvula midline, postnasal drainage and no uvular edema Eyes: General: appearance normal, both eyes and all related structures Alignment and Position: alignment normal Neck: Neck: normal visual inspection, full ROM, no lymphadenopathy and no meningeal signs Chest: Chest palpation & inspection: normal inspection of the chest Resp: Effort & Inspection: normal respiratory effort and able to speak in complete sentences Auscultation: clear to auscultation bilaterally, no crackles, no rales, no rhonchi and no wheezes Cardio: Rate: regular rate Skin: General skin exam: normal color and no rashes or lesions noted Neuro: General: patient oriented x3, gait normal, moves all extremities and no meningeal signs Cognition (Neuro): normal cognition Speech: normal speech Gait exam (Neuro): Normal gait present Extrem: General: normal to inspection, full ROM, capillary refill normal and normal gait Psych: Appearance: grossly normal and well kempt Mental Status: mental status grossly normal Speech and movement: Normal speech and movement present and Clear speech present Affect: normal affect Attitude: cooperative Course Course Level of Care: Express Care Visit Vital Signs Vital signs: Vital Signs Temperature 97.6 F 05/03/25 12:01 Pulse Rate 65 05/03/25 12:01 Respiratory Rate 20 05/03/25 12:01 Blood Pressure 149/73 H 05/03/25 12:01 Pulse Oximetry 97 05/03/25 12:01 Oxygen Delivery Room Air 05/03/25 12:01 Temperature 97.6 F 05/03/25 12:01 Pulse Rate 65 05/03/25 12:01 Respiratory Rate 20 05/03/25 12:01 Blood Pressure 149/73 H 05/03/25 12:01 Pulse Oximetry 97 05/03/25 12:01 Oxygen Delivery Room Air 05/03/25 12:01 Reviewed MDM - URI/Sore Throat MDM Narrative Medical decision making narrative: Patient sitting comfortably in exam room. Patient is nontoxic, vitals stable. Patient presents with total day history of URI symptoms. Discussed the importance of checking with medication before taking it due to blood pressure issues. Due to length of symptoms will cover with an antibiotic, encourage patient to follow-up with primary care provider and discussed signs and symptoms to proceed to the emergency room which he verbalized understanding P Discharge instructions reviewed with patient, as well as provided in writing per nursing staff. The instructions also include specific and strict return/GO TO THE ER as well as f/u information. All questions have been answered, and the patient deny any further questions with discharge and discharge plan. Some parts of this dictation were generated by voice recognition software and may contain typographical and/or grammatical inaccuracies. Differential Diagnosis Differential diagnosis: Likely upper respiratory infection, otitis media, sinusitis, viral infection, bronchitis, influenza and pharyngitis Critical Care Time Critical Care Time Critical Care Time: No Discharge Plan Discharge Clinical Impression: Sinusitis, Upper respiratory infection, PND (post-nasal drip) Patient Disposition: Home Condition: Stable Instructions: Antibiotic Form, Sinusitis (ED), Postnasal Drip (DC) Additional Instructions: Today your blood pressure was 149/73 it is recommended you follow-up with primary care provider to have this rechecked within 2 weeks It is very important to treat your symptoms. Drink plenty of water, Gatorade, Pedialyte, ice pops or Jell-O. -Alternate Tylenol and Motrin per package directions for fever or pain. You can alternate every 4 hours -Antihistamine medication such as Zyrtec/Claritin during the day can help improve symptoms. -doing daily nasal irrigations can help relieve pressure your sinuses. Things like a Neti pot -Use Flonase twice a day for 5 days then daily to help reduce the inflammation and dry up your sinuses. -You can also use Coricidin HBP or Mucinex. Be sure to drink plenty of water with this medication at least 8 ounces with every dose and it is important to drink 8 to 10 glasses of water per day. Water is a natural decongestant Be sure to check your cold medication to make sure it is safe with hypertension. -Eat and drink things that are easy to swallow, like tea or soup, or popsicles. -Oral rinses such as: Salt water gargles and/or may use topical anesthetic (eg. Chloraseptic spray) or lozenges to relieve dryness or throat pain). -Frequent hand washing or hand roofer assistant is one of the best ways to prevent spread of infection. -Using a vaporizer or humidifier at night will also help thin secretions and help with coughing up phlegm. -Follow up with primary care provider in 7-10 days if condition is not improving - For new or worsening symptoms go directly to the nearest ER Patient Language: Vietnamese Prescriptions: New doxycycline monohydrate 100 mg tablet 100 mg PO BID Qty: 14 0RF No Action citalopram 10 mg tablet 10 mg PO DAILY montelukast 10 mg tablet 10 mg PO DAILY pravastatin 20 mg tablet 20 mg PO DAILY Centrum Silver Stem CentRx Men's [id number] mcg tablet 1 tablet PO DAILY cyanocobalamin (vitamin B-12) 1,000 mcg tablet 500 mcg PO DAILY calcium carbonate [Calcium 500] 500 mg calcium (1,250 mg) tablet,chewable 500 mg PO BID Patient Comments: . (DME) Accu-Chek Guide test strips Strip See Rx Instructions .Route Qty: 100 2RF Rx Instructions: As directed Ozempic 1 mg/dose (4 mg/3 mL) pen injector See Rx Instructions .ROUTE .COMPLEX Qty: 3 0RF Dose Instruction: ADMINISTER 1 MG UNDER THE SKIN WEEKLY Rx Instructions: ADMINISTER 1 MG UNDER THE SKIN WEEKLY trazodone 50 mg tablet 50 mg PO QHS PRN (Reason: insomnia) Qty: 90 1RF losartan 25 mg tablet See Rx Instructions .ROUTE .COMPLEX Qty: 90 0RF Dose Instruction: TAKE 1 TABLET BY MOUTH DAILY Rx Instructions: TAKE 1 TABLET BY MOUTH DAILY Follow-up/Referrals: Opal Avendano DO [Primary Care Provider, Family Practice] - 2 Weeks Referral Note: Blood pressure check Time of Disposition: 12:31
== END 2025-05-03 12:35 | disposition home or self-care (01) ==
PROVIDERS: Emergency Provider Nurse Practitioner; PCP Family Medicine
DX: J32.9 Chronic sinusitis, unspecified (principal); J06.9 Acute upper respiratory infection, unspecified; R09.82 Postnasal drip; I10 Essential (primary) hypertension; E11.9 Type 2 diabetes mellitus without complications; Z79.85 Long-term (current) use of injectable non-insulin antidiabetic drugs; E78.5 Hyperlipidemia, unspecified; M19.90 Unspecified osteoarthritis, unspecified site; Z79.84 Long term (current) use of oral hypoglycemic drugs
CPT/HCPCS: 99213; G0463

== ENCOUNTER → 2025-06-15 11:17 | Outpatient (CLI) | payer MEDICARE, SELFPAY ==
--- NOTE | ~2025-06-15 | XR_ITS ---
EXAMINATION: XR hip RT min 2V, 06/15/2025 11:29 [facility]AS HISTORY: M25.551 - Pain in right hip few years off/on worse lately COMPARISON: No comparisons available. Findings: No acute fracture or malalignment. No significant degenerative changes. Soft tissues unremarkable. Impression: No acute fracture or malalignment. Reviewed, dictated and finalized at location P. Impression: No acute fracture or malalignment.
== END ==
PROVIDERS: PCP Family Medicine; Visit Provider Family Medicine
DX: M25.551 Pain in right hip (principal)
CPT/HCPCS: 73502